=== PATIENT | male | born 1995 | race Caucasian/White ===

== ENCOUNTER 2023-11-22 08:33 | Inpatient (IN) ==
[2023-11-22 11:02] LABS: ABS Lymphocytes 1.9 10^3/uL (1.0-4.8); ABS Monocytes 0.5 10^3/uL (0.0-1.1); ABS Neutrophils 4.3 10^3/uL (1.5-7.6); ABS Nucleated RBC 0.01 10^3/ul; Eosinophil % 0.3 %; Hematocrit 44.8 % (38-53); Hemoglobin 15.1 g/dL (13.2-16.3); Lymphocyte % 28.1 %; Mean Corpuscular Hemoglobin 29.5 pg (27-33); Mean Corpuscular Hgb Conc 33.7 g/dL (31-36); Mean Corpuscular Volume 87.4 fL (80-97); Mean Platelet Volume 7.9 fL (7.5-11.2); Nucleated Red Blood Cells % 0.2 %/100WBC (0.0-0.8); Platelet Count 264 10^3/uL (150-450); Red Blood Count 5.12 10^6/uL (4.06-5.63); White Blood Count 6.8 10^3/uL (3.6-10.2)
[2023-11-22 11:45] LABS: Urine Appearance Turbid; Urine Bilirubin Negative (Negative); Urine Blood 1+ (Negative); Urine Color Yellow; Urine Glucose Trace (Negative); Urine Ketones 4+ (Negative); Urine Nitrite Negative (Negative); Urine Protein 1+ (>=30 mg/dL) (Negative); Urine Specific Gravity 1.035 (1.002-1.030); Urine Urobilinogen 1+ (Negative)
[2023-11-22 11:58] LABS: ALT 10 U/L (7-52); AST 14 U/L (13-39); Acetaminophen < 15 mcg/mL; Alcohol, S < 13 mg/dL (<13); Alkaline Phosphatase 53 U/L (35-149); Anion Gap 13 mmol/L (2-16); Blood Urea Nitrogen 15 mg/dL (6-24); CO2 Carbon Dioxide 23 mmol/L (22-32); Chloride 105 mmol/L (101-111); Creatinine, Serum 0.89 mg/dL (0.67-1.17); Globulin 2.5 g/dL (2-4); Glucose 127 mg/dL (70-100); Potassium 3.6 mmol/L (3.5-5.0); Salicylate < 2.50 mg/dL (<30); Sodium 141 mmol/L (135-145); Total Protein 7.5 g/dL (6.4-8.9)
[2023-11-22 12:01] LABS: Urine Bacteria Absent /HPF (Absent); Urine Red Blood Cell 2+(6-10/hpf) /HPF (0-Trace); Urine White Blood Cell 1+(6-10/hpf) /HPF (0-Trace)
[2023-11-22 12:07] LABS: TSH Ultra Thyroid Stim Horm 1.22 mcIU/mL (0.34-5.60)
[2023-11-22 12:15] LABS: Urine Benzodiazepine Screen None Detected (None Detect); Urine Cannabinoids Screen None Detected (None Detect); Urine Opiates Screen None Detected (None Detect)
[2023-11-22] MEDS ORDERED: Al Hydrox/Mg Hydrox/Simet LIQ 30 ML UDC PO PRN (13:32)
[2023-11-23 08:48] LABS: HDL Cholesterol 29.9 mg/dL
[2023-11-25] MEDS: chlorproMAZINE 25 MG/ML 2 ML (50 MG) ONE (17:53)
[2023-11-26] MEDS ORDERED: Lorazepam PYXIS KEY PRN (10:48)
[2023-11-26] MEDS: LORazepam 2 MG/ML 1 mL Syringe ONE (10:59)
[2023-11-26] MEDS: chlorproMAZINE 25 MG/ML 2 ML (50 MG) IM ONE (10:59)
[2023-11-26] MEDS: LORazepam 2 MG/ML 1 mL Syringe IM ONE (10:59)
[2023-11-26] MEDS: chlorproMAZINE 25 MG/ML 2 ML (50 MG) ONE (11:00)
[2023-11-27] MEDS ORDERED: LORazepam 2 mg VIAL 1 ml IM ONE (12:14)
[2023-11-27] MEDS ORDERED: Lorazepam PYXIS KEY PRN (12:14)
[2023-11-27] MEDS: LORazepam 2 MG/ML 1 mL Syringe IM ONE (12:30)
[2023-11-27] MEDS: chlorproMAZINE 25 MG/ML 2 ML (50 MG) IM ONE (12:30)
[2023-11-27] MEDS: chlorproMAZINE 25 MG/ML 2 ML (50 MG) ONE (13:47)
[2023-11-27] MEDS: LORazepam 2 MG/ML 1 mL Syringe ONE (13:48)
[2023-11-28] MEDS: OLANZapine 10 mg TAB*ODT PO PRN (22:38)
[2023-11-29] MEDS: Dextran 70/Hypromellose Tears Eye Drops 15 ml BTL (for Artificials Tears) BOTH EYES PRN (21:57)
[2023-12-01] MEDS: Polyethylene Glycol 3350 17 GM PACKET PO PRN (05:56)
[2023-12-05] MEDS: OLANZapine IM (NF) 10 MG VIAL IM ONE ×2 (13:19→13:20)
[2023-12-06] MEDS: OLANZapine 10 mg TAB*ODT PO SCH (07:09)
[2023-12-09] MEDS ORDERED: OLANZapine 5 mg TAB *ODT PO PRN (12:09)
[2023-12-09] MEDS: OLANZapine 10 mg TAB*ODT PO SCH (19:59)
[2023-12-10] MEDS ORDERED: Lorazepam PYXIS KEY PRN (12:14)
== END 2023-12-13 12:15 | disposition home or self-care (01) | DRG 885 ==
LOC: ED 08:33 → EDHOLD 13:32 → BSU 15:12
PROVIDERS: ADMIT Psychiatry & Neurology Psychiatry; ATTEND Psychiatry & Neurology Psychiatry